=== PATIENT | female | born 1960 | race African-American/Black ===

== ENCOUNTER 2017-07-05 20:20 | Emergency (ER) | payer SELFPAY ==
[~2017-07-05] VITALS: Ht 175.3 cm; Wt 111.1 kg
[~2017-07-05 20:20] MED LIST: ALPR0.5T PO; BUPR75TA4 PO; CARI-277 PO; CYCL1TAB18 PO; DIAZ-104 PO; FLUO20CA19 PO; GABA-339 PO
[2017-07-05 21:01] LABS: Basophils # (auto) 0 uL; Basophils % (auto) 0.4 % (0.0-2.0); Eosinophils # (auto) 0.1 uL; Eosinophils % (auto) 1.8 % (0.0-7.0); Hematocrit 32.9 % (36.0-46.0); Hemoglobin 10.5 g/dL (12.2-16.2); Lymphocytes # (auto) 1.5 uL; Lymphocytes % (auto) 21.2 % (10.0-50.0); Mean Corpuscular Hemoglobin 30.4 pg (28.0-32.0); Mean Corpuscular Hgb Conc. 31.9 g/dL (32.0-36.0); Mean Corpuscular Volume 95.4 fL (80.0-100.0); Mean Platelet Volume 7.3 fL (7.4-10.4); Monocytes # (auto) 0.7 uL; Monocytes % (auto) 10.4 % (0.0-12.0); Neutrophils # (auto) 4.7 uL; Neutrophils % (auto) 66.2 % (37.0-80.0); Nucleated Red Blood Cells % 0.1 %; White Blood Cell 7.1 10^3/uL (4.4-10.8)
[2017-07-05 21:19] LABS: Albumin 2.6 g/dL (3.4-5.0); Anion Gap 10 (5-15); Aspartate Aminotransferase 18 U/L (15-37); BUN/Creatinine Ratio 30.4; Blood Urea Nitrogen 28 mg/dL (7-18); Calcium 8.4 mg/dL (8.5-10.1); Carbon Dioxide 26 mmol/L (21-32); Chloride 101 mmol/L (98-107); GFR African American 82 mL/min; GFR Non-African American 67 mL/min; Glucose 89 mg/dL (74-106); Sodium 137 mmol/L (136-145)
[2017-07-05 21:22] LABS: INR 1.05 (0.9-1.15); Partial Thromboplastin Time 30.5 sec (22.64-33.71); Prothrombin Time 11.4 sec (9.37-12.3)
[2017-07-05 21:24] LABS: Platelet Count (auto) 785 10^3/uL (140-450)
[2017-07-05 21:26] LABS: Alkaline Phosphatase 268 U/L (45-117); Bilirubin, Total 0.7 mg/dL (0.2-1.0); Total Protein 7.9 g/dL (6.4-8.2)
[2017-07-06] VITALS: BP 96/55
[2017-07-06] MEDS ORDERED: MORPHINE SULF INJ 2 MG/ML SYRINGE 1ML IV ONE
[2017-07-06] MEDS ORDERED: ONDANSETRON HCL 4 MG/2 ML VIAL IV ONE
== END 2017-07-06 00:33 | disposition home or self-care (01) ==
LOC: EDBD 20:20 → ER 20:20
DX: F41.9 Anxiety disorder, unspecified (principal); M79.89 Other specified soft tissue disorders; Z88.8 Allergy status to other drugs, medicaments and biological substances; Z79.899 Other long term (current) drug therapy; Z90.49 Acquired absence of other specified parts of digestive tract
CPT/HCPCS: 36415; 70450; 71010; 80053; 84484; 85025; 85610; 85730; 93970; 96374; 96375; 99285; J2270; J2405

== ENCOUNTER 2019-12-26 05:45 | Emergency (ER) | payer OTHER ==
[~2019-12-26] VITALS: Ht 180.3 cm; Wt 104.0 kg
[~2019-12-26 05:45] MED LIST changes: -DIAZ-104 PO; +DIAZ5TAB PO
[2019-12-26 07:28] LABS: Basophils # (auto) 0 10 ^3/uL (0-0.2); Basophils % (auto) 0.3 % (0.0-2.0); Eosinophils # (auto) 0.1 10 ^3/uL (0-0.8); Hematocrit 30.8 % (36.0-46.0); Hemoglobin 10.1 g/dL (12.2-16.2); Lymphocytes # (auto) 0.9 10 ^3/uL (0.4-5.4); Lymphocytes % (auto) 26.2 % (10.0-50.0); Mean Corpuscular Hemoglobin 29.7 pg (28.0-32.0); Mean Corpuscular Hgb Conc. 32.8 g/dL (32.0-36.0); Mean Corpuscular Volume 90.5 fL (80.0-100.0); Monocytes # (auto) 0.4 10 ^3/uL (0-1.3); Monocytes % (auto) 11.8 % (0.0-12.0); Neutrophils % (auto) 58.7 % (37.0-80.0); Nucleated Red Blood Cells % 0.1 %; Platelet Count (auto) 274 10^3/uL (140-450); Red Blood Cells 3.41 10^6/uL (4.0-5.20); Red Cell Distribution Width 18.1 % (11.8-14.3); White Blood Cell 3.4 10^3/uL (4.4-10.8)
[2019-12-26 07:38] LABS: BUN/Creatinine Ratio 40.8; Potassium 4.4 mmol/L (3.5-5.1)
[2019-12-26 08:00] VITALS: BP 92/40
[2019-12-26 08:48] LABS: Urine Bacteria FEW /hpf (None Seen); Urine Blood Negative /uL (Negative); Urine Specific Gravity 1.008 (1.001-1.035); Urine WBC 1 /hpf (0 - 5)
== END 2019-12-26 09:26 | disposition home or self-care (01) ==
LOC: ER 05:45
DX: Z45.2 Encounter for adjustment and management of vascular access device (principal); T82.848A Pain due to vascular prosthetic devices, implants and grafts, initial encounter; K90.9 Intestinal malabsorption, unspecified; Z86.2 Personal history of diseases of the blood and blood-forming organs and certain disorders involving the immune mechanism; Z79.899 Other long term (current) drug therapy; Z88.8 Allergy status to other drugs, medicaments and biological substances
CPT/HCPCS: 36415; 80048; 81001; 85025